=== PATIENT | male | born 1970 ===

== ENCOUNTER 2024-10-23 06:47 | Inpatient (IN) | payer OTHER ==
[~2024-10-23] VITALS: Ht 213.4 cm; Wt 90.3 kg
[2024-10-23 07:19] LABS: URINE APPEARANCE Clear; URINE BILIRRUBIN Negative (NEGATIVE); URINE BLOOD Negative; URINE COLOR Dark Yellow; URINE GLUCOSE Negative (NEGATIVE); URINE KETONE Trace (NEGATIVE); URINE LEUKOCYTE Negative; URINE NITRATE Negative; URINE PROTEIN Negative (NEGATIVE); URINE UROBILINOGEN 1.0 E.U./dl
[2024-10-23 07:24] LABS: URINE BACTERIA 10.7 uL (0.0-1933); URINE EPITHELIAL CELLS 7.9 uL (0.0-38.8); URINE RBC 2.6 uL (0.0-20.8); URINE WBC 3.9 uL (0.0-23.2)
[2024-10-23 07:25] LABS: BASO % 0.3 % (0.1-1.2); EOS # 0.09 (0.04-0.54); EOS % 0.9 % (0.7-7.0); LYMPH # 2.21 (1.18-3.74); LYMPH % 22.8 % (19.3-53.1); MEAN PLATELET VOLUME 10.80 fl (9.4-12.4); MONO # 0.79 (0.24-0.82); MONO % 8.2 % (4.7-12.5); NEUT # 6.54 (1.56-6.13); NEUT % 67.6 % (34.0-71.1); RED CELL DISTRIBUTION WIDTH 13.0 % (11.6-14.4)
[2024-10-23 07:28] LABS: URINE CAST 0.14 uL (0.0-1.40)
[2024-10-23 07:59] LABS: INR 1.05
[2024-10-23 08:16] LABS: BUN CREA RATIO 13.0 (7.0-25.0); CREATININE SERUM 1.18 mg/dL (0.70-1.30); GFR 64.09; GLUCOSE FASTING 102.0 mg/dL (65-100); OSMOLALITY SERUM 288.0 MOSM/KG (275-295); T4 TOTAL 9.64 UG/DL (4.5-12.1); TSH 3.03 uIU/mL (0.358-3.74)
[2024-10-23 08:25] LABS: COVID-19 AG NEGATIVE (NEGATIVE)
[2024-10-23] MEDS ORDERED: AMLODIPINE-OLM1 EAC2 PO (09:01)
[2024-10-23] MEDS ORDERED: ALBUTEROL0.63 MG/3 (09:01)
[2024-10-23] MEDS ORDERED: PROTONIX40 MG PO (09:02)
[2024-10-23] MEDS ORDERED: RESTORIL30 M1 PO (09:03)
[2024-10-23] MEDS ORDERED: OLANZAPINE ODT10 MG PO (09:03)
[2024-10-23] MEDS ORDERED: CLONAZEPAM2 MG PO (09:04)
[2024-10-23] MEDS ORDERED: ZOLOFT100 MG PO (09:05)
[2024-10-23] MEDS ORDERED: ZORVOLEX35 MG (09:05)
[2024-10-23] MEDS ORDERED: MOTRIN IB200 M1 (09:06)
[2024-10-23] MEDS ORDERED: SINGULAIR10 MG PO (09:07)
[2024-10-23 09:08] VITALS: BP 117/69
[2024-10-29] MEDS ORDERED: 0.9 % SODIUM CHLORIDE 1,000 ML IV SCH (10:30)
[2024-10-29] MEDS ORDERED: ENALAPRILAT DIHYDRATE 1.25 MG/ML VIAL IV PRN (10:30)
[2024-10-29] MEDS ORDERED: PROMETHAZINE HCL 50 MG/ML AMPUL IM PRN (10:30)
[2024-10-29] MEDS ORDERED: MEDROLPACK PO (10:38)
[2024-10-29] MEDS ORDERED: PERCOCET 5-3251 EACH PO (10:38)
[2024-10-29] MEDS ORDERED: AMOX-CLAV 875-1 EACH PO (10:39)
[2024-10-29] MEDS ORDERED: GABAPENTIN100 M2 PO (10:41)
[2024-10-29] MEDS ORDERED: NEURONTIN800 MG PO (10:42)
[2024-10-29] MEDS ORDERED: ZOFRAN8 MG PO (10:43)
[2024-10-29] MEDS ORDERED: COLACE100 MG PO (10:45)
[2024-10-29] MEDS ORDERED: DOCUSATE SODIUM 100MG CAP PO SCH (13:00)
[2024-10-29] MEDS ORDERED: MORPHINE SULFATE 4 MG/ML CARTRIDGE IV SCH (13:00)
[2024-10-29] MEDS ORDERED: VANCOMYCIN HCL 1,000 MG VIAL IR ONE (14:45)
[2024-10-29] MEDS ORDERED: METHYLPREDNISOLONE ACETATE 80 MG/ML VIAL IM ONE (14:45)
[2024-10-29] MEDS ORDERED: VANCOMYCIN HCL 1,000 MG VIAL IV ONE (14:45)
[2024-10-29] MEDS ORDERED: METHYLPREDNISOLONE SOD SUCC 125 MG VIAL IV ONE (14:45)
[2024-10-29] MEDS ORDERED: CEFAZOLIN SODIUM 1,000 MG VIAL IV ONE (15:00)
[2024-10-29 16:30] VITALS: BP 117/69; O2SAT 95
[2024-10-29] MEDS ORDERED: CEFAZOLIN SODIUM 1,000 MG in 0.9 % SODIUM CHLORIDE 50 ML IV SCH (17:00)
[2024-10-29] MEDS ORDERED: MONTELUKAST SODIUM 10 MG TABLET PO SCH (17:00)
[2024-10-29] MEDS ORDERED: METHYLPREDNISOLONE SOD SUCC 125 MG VIAL IV SCH (17:00)
[2024-10-29] MEDS ORDERED: ALBUTEROL SULFATE 3 ML/2.5 MG AMPUL.NEB IH SCH (17:00)
[2024-10-29] MEDS ORDERED: ACETAMINOPHEN 500 MG GEL..CAP PO SCH (20:00)
[2024-10-29] MEDS ORDERED: GABAPENTIN 800 MG TABLET PO SCH (21:00)
[2024-10-29] MEDS ORDERED: VANCOMYCIN HCL 1,000 MG VIAL IV SCH (21:00)
[2024-10-30] VITALS: BP 109/70; O2SAT 94
[2024-10-30] MEDS ORDERED: SODIUM CHLORIDE 0.45 % 1,000 ML IV SCH
[2024-10-30 06:00] VITALS: BP 115/71; O2SAT 93
[2024-10-30] MEDS ORDERED: OxyCODONE HCL 5 MG TABLET (ROXICODONE) PO PRN (06:01)
[2024-10-30 06:50] LABS: BASO % 0.1 % (0.1-1.2); EOS # 0.00 (0.04-0.54); EOS % 0.0 % (0.7-7.0); LYMPH # 0.73 (1.18-3.74); LYMPH % 3.9 % (19.3-53.1); MEAN PLATELET VOLUME 11.50 fl (9.4-12.4); MONO # 0.54 (0.24-0.82); MONO % 2.9 % (4.7-12.5); NEUT # 17.23 (1.56-6.13); NEUT % 92.3 % (34.0-71.1); RED CELL DISTRIBUTION WIDTH 12.8 % (11.6-14.4)
[2024-10-30 07:04] LABS: BUN CREA RATIO 9.0 (7.0-25.0); CREATININE SERUM 1.2 mg/dL (0.70-1.30); GFR 62.86; GLUCOSE FASTING 168.0 mg/dL (65-100); OSMOLALITY SERUM 286.0 MOSM/KG (275-295)
[2024-10-30] MEDS ORDERED: SODIUM CL 0.9% 50 ML IV.SOLN IV ONE (07:16)
[2024-10-30 07:34] VITALS: BP 147/75; O2SAT 97
[2024-10-30] MEDS ORDERED: TAMSULOSIN HCL 0.4 MG CAP PO SCH (09:00)
[2024-10-30] MEDS ORDERED: VERAPAMIL HCL 240 MG TABLET.SA PO SCH (09:00)
[2024-10-30] MEDS ORDERED: AMLODIPINE BESYLATE 5 MG TABLET PO SCH (09:00)
[2024-10-30] MEDS ORDERED: SERTRALINE HCL 100 MG TABLET PO SCH (09:00)
[2024-10-30 12:25] VITALS: BP 125/62; O2SAT 97
[2024-10-31] VITALS: BP 129/74; O2SAT 96
[2024-10-31 04:00] VITALS: BP 132/82; O2SAT 93
[2024-10-31] MEDS ORDERED: CEFAZOLIN SODIUM 1,000 MG VIAL ONE (08:09)
[2024-10-31 08:15] VITALS: BP 117/76; O2SAT 97
[2024-10-31 12:47] VITALS: BP 123/81; O2SAT 100
[2024-10-31 15:53] VITALS: BP 118/71; O2SAT 93
== END 2024-10-31 18:00 | disposition home or self-care (01) | DRG 428 ==
LOC: SURH 10-25 09:30 → O/R 10-29 07:00 → PED 10-29 14:32
PROVIDERS: ADMIT Orthopaedic Surgery Orthopaedic Surgery of the Spine; ATTEND Orthopaedic Surgery Orthopaedic Surgery of the Spine
PROC: 0SG0071 Fusion of Lumbar Vertebral Joint with Autologous Tissue Substitute, Posterior Approach, Posterior Column, Open Approach (ICD-10-PCS; 2024-10-29)
PROC: XRGD0R7 Fusion of Lumbosacral Joint using Custom-Made Anatomically Designed Interbody Fusion Device, Open Approach, New Technology Group 7 (ICD-10-PCS; 2024-10-29)
PROC: 0SG3071 Fusion of Lumbosacral Joint with Autologous Tissue Substitute, Posterior Approach, Posterior Column, Open Approach (ICD-10-PCS; 2024-10-29)
PROC: 0ST20ZZ Resection of Lumbar Vertebral Disc, Open Approach (ICD-10-PCS; 2024-10-29)
PROC: 0ST40ZZ Resection of Lumbosacral Disc, Open Approach (ICD-10-PCS; 2024-10-29)
PROC: 0QB30ZZ Excision of Left Pelvic Bone, Open Approach (ICD-10-PCS; 2024-10-29)
PROC: 07DR0ZZ Extraction of Iliac Bone Marrow, Open Approach (ICD-10-PCS; 2024-10-29)
PROC: 4A1104G Monitoring of Peripheral Nervous Electrical Activity, Intraoperative, Open Approach (ICD-10-PCS; 2024-10-29)
PROC: XRGB0R7 Fusion of Lumbar Vertebral Joint using Custom-Made Anatomically Designed Interbody Fusion Device, Open Approach, New Technology Group 7 (ICD-10-PCS; principal; 2024-10-29 10:45)
DX: M48.062 Spinal stenosis, lumbar region with neurogenic claudication (principal); M48.27 Kissing spine, lumbosacral region; M51.370 Other intervertebral disc degeneration, lumbosacral region with discogenic back pain only; M51.360 Other intervertebral disc degeneration, lumbar region with discogenic back pain only; M48.061 Spinal stenosis, lumbar region without neurogenic claudication; M54.17 Radiculopathy, lumbosacral region; I10 Essential (primary) hypertension; F41.9 Anxiety disorder, unspecified; J45.909 Unspecified asthma, uncomplicated; G47.33 Obstructive sleep apnea (adult) (pediatric)